=== PATIENT | male | born 1965 | race Two or more races ===

== ENCOUNTER → 2018-07-02 | Outpatient (CLI) | payer OTHER ==
--- NOTE | 2018-07-02 16:12 | RAD ---
Complete abdominal ultrasound 07/02/2018 10:30 AM Clinical History: Weight loss Technique: Ultrasound examination of the abdomen was performed, and multiple static images were submitted for review. Comparison: None available Findings: Pancreas is partially visualized. Visualized portions of pancreas demonstrate no gross abnormality. Visualized portions of the aorta and IVC are grossly unremarkable. The liver is enlarged measuring 21.2 cm longitudinally. The liver is diffusely hyperechoic suggesting hepatic steatosis. No other focal hepatic lesions are identified by ultrasound. The common bile duct is top normal in diameter between 4 and 5 mm. The right kidney is normal in appearance measuring 13.5 cm in length. The spleen is normal in size measuring 11 cm longitudinally. Left kidney is normal in appearance measuring 13.6 cm in length. The gallbladder is unremarkable in appearance without evidence of wall thickening, stones, or sludge. No pericholecystic fluid is identified. IMPRESSION: 1.Hepatomegaly and hepatic steatosis 2. Otherwise unremarkable abdominal ultrasound Electronically signed by: Bismark Pope MD (07/02/2018 2:20 PM) [id number]
== END | disposition home or self-care (01) ==
LOC: US 10:13
PROVIDERS: ATTEND Family Medicine
DX: K76.0 Fatty (change of) liver, not elsewhere classified (principal); R16.0 Hepatomegaly, not elsewhere classified
CPT/HCPCS: 76700